=== PATIENT | female | born 1970 | race Two or more races ===

== ENCOUNTER 2023-10-07 11:23 | Emergency (ER) | payer OTHER ==
[~2023-10-07] VITALS: Ht 157.5 cm; Wt 65.8 kg
[2023-10-07 11:44] VITALS: BP 143/80
[2023-10-07 12:31] LABS: BASOPHILS ABSOLUTE AUTO 0.02 K/mm3 (0.00-0.23); BASOPHILS PERCENT AUTO 0 % (0-2); EOSINOPHILS ABSOLUTE AUTO 0.14 K/mm3 (0.00-0.68); EOSINOPHILS PERCENT AUTO 3 % (0-6); Hematocrit 22.4 % (33.0-51.0); Hemoglobin 6.6 g/dL (11.5-16.0); IMMATURE GRAN ABSOLUTE AUTO 0.01 K/mm3 (0.00-0.10); IMMATURE GRAN PERCENT AUTO 0 % (0-1); LYMPHOCYTES ABSOLUTE AUTO 2.52 K/mm3 (0.84-5.20); LYMPHOCYTES PERCENT AUTO 53 % (21-46); MONOCYTES ABSOLUTE AUTO 0.43 K/mm3 (0.16-1.47); MONOCYTES PERCENT AUTO 9 % (4-13); Mean Corpuscular HGB 20.9 pg (26.0-34.0); Mean Corpuscular HGB Conc 29.5 g/dL (31.5-36.5); Mean Corpuscular Volume 71 fL (80-100); Mean Platelet Volume 10.5 fL (9.1-12.4); NEUTROPHILS ABSOLUTE AUTO 1.64 K/mm3 (1.96-9.15); NEUTROPHILS PERCENT AUTO 35 % (41-73); Platelet Count 331 K/mm3 (150-400); RDW Coefficient Variation 15.4 % (11.7-14.2); RDW Standard Deviation 39.2 fL (35.1-46.3); Red Blood Cell Count 3.16 M/mm3 (3.80-5.20); White Blood Cell Count 4.76 K/mm3 (4.00-11.30)
[2023-10-07 13:04] LABS: Albumin, Blood 3.4 g/dL (3.4-5.0); Albumin/Globulin Ratio 0.9 (0.8-1.8); Bilirubin, Total 0.2 mg/dL (0.1-1.0); Bun/Creatinine Ratio 9.6 (12.0-20.0); Calcium, Blood 8.6 mg/dL (8.5-10.1); Creatinine, Blood 0.73 mg/dL (0.40-1.00); Globulin, Blood 3.6 g/dL (2.2-4.0); Potassium, Blood 3.7 mmol/L (3.5-5.5)
[2023-10-07] MEDS ORDERED: MEDR10 PO (15:25)
== END 2023-10-07 15:31 | disposition home or self-care (01) ==
LOC: ER 11:23
PROVIDERS: Physician Assistant
DX: D50.0 Iron deficiency anemia secondary to blood loss (chronic) (principal); D25.0 Submucous leiomyoma of uterus
CPT/HCPCS: 76830; 76856; 80053; 85025; 99284-25

== ENCOUNTER 2023-12-25 06:33 | Day surgery (SDC) | payer OTHER ==
[2023-12-25] VITALS (16 sets, daily range): BP systolic 123–155; BP diastolic 73–87
[~2023-12-25] VITALS: Ht 157.5 cm; Wt 61.6 kg
[~2023-12-25 06:33] MED LIST: Clindamycin 900mg in D5W 50ML 50 ML IV SCH; Cymbalta20 MG PO; FERSU300 PO; LAMO25 PO; Lactated Ringer's 1,000 ML IV SCH; MEDR10 PO; METO25ER PO; MIRALAX1714 PO; TRAZ50 PO
[2023-12-25] MEDS ORDERED: NS IV SCH ×2 (06:45→06:55)
[2023-12-25] MEDS ORDERED: GENTAMICIN SULFATE IV SCH ×2 (06:45→06:55)
[2023-12-25] MEDS ORDERED: FentaNYL Citrate 50 MCG/ML 5 ML Injection ONE (07:10)
[2023-12-25] MEDS ORDERED: Rocuronium Bromide 10 MG/ML 5ML Injection IV ONE ×2 (07:10)
[2023-12-25] MEDS ORDERED: Ondansetron HCl 2 MG / ML 2ML Vial ONE ×2 (07:10→11:11)
[2023-12-25] MEDS ORDERED: Dexamethasone Sod Phos 10 MG/ML 1ML VIAL ONE (07:10)
[2023-12-25] MEDS ORDERED: Ketorolac Tromethamine 30mg Vial ONE (07:10)
[2023-12-25] MEDS ORDERED: propofoL 20 ML IV ONE (07:10)
[2023-12-25] MEDS ORDERED: Glycopyrrolate 0.2 MG/ML 5ML VIAL ONE (07:10)
--- NOTE | 2023-12-25 07:10 | NUR ---
Ambulatory in Day Surgery Patient confirms NPO status and agrees with scheduled surgery. Pre-Op teaching done. Pt verbalizes understanding. History, Chart, Medications and Allergies reviewed before start of procedure.Patient States Post-Procedure ride home has been arranged.
[2023-12-25] MEDS ORDERED: Bupivacaine 0.5% HCl 5 MG/ML 30MLVIAL ONE ×2 (07:18→07:35)
[2023-12-25] MEDS ORDERED: Midazolam HCl 1MG / ML 2ML Vial IV ONE (07:20)
[2023-12-25] MEDS ORDERED: HydrALAZINE HCl 20 MG / ML 1ML Vial ONE ×2 (08:22→10:08)
[2023-12-25] MEDS ORDERED: FentaNYL Citrate 50 MCG/ML 2 ML Injection ONE ×4 (08:23→11:19)
[2023-12-25] MEDS ORDERED: Sugammadex Sodium 200 MG/2ML SDV (100 MG/ML) ONE (09:26)
[2023-12-25] MEDS ORDERED: Simethicone 80 MG Chew PO PRN (11:05)
[2023-12-25] MEDS ORDERED: OxyCODONE HCL 5 MG TAB PO PRN ×2 (11:05→11:10)
[2023-12-25] MEDS ORDERED: Metoclopramide HCl 5MG / ML 2ML Vial IV PRN (11:10)
[2023-12-25] MEDS ORDERED: HYDROmorphone HCl/Pf 1MG SYR IV PRN (11:10)
[2023-12-25] MEDS ORDERED: Lactated Ringer's 1,000 ML IV SCH (11:10)
[2023-12-25] MEDS ORDERED: Ondansetron HCl 2 MG / ML 2ML Vial IV PRN (11:10)
[2023-12-25] MEDS ORDERED: Naloxone HCl 0.4MG / ML 1ML Vial IV PRN (11:10)
[2023-12-25] MEDS ORDERED: DiphenhydrAMINE HCL 25 MG Cap PO PRN (11:15)
[2023-12-25] MEDS ORDERED: Ketorolac Tromethamine 30mg Vial IV SCH (12:00)
[2023-12-25] MEDS ORDERED: Acetaminophen 500 MG Tab PO SCH (12:00)
--- NOTE | 2023-12-25 12:46 | NUR ---
POST-OP PATIENT ARRIVAL AT 1145, AOX4. VITALS STABLE. LAP SCITES X3 WITH WOUND GLUE C/D/I. VENEER SPLICER. REPORTS PAIN OF 5/10 MEDICATED PER EMAR. HEATING PAD IN PLACE. PATIENT IS ABLE TO AMBULATE TO BATHROOM AND VOID 300ML. SCANT DRNG ON PERIPAD. DENIES N/V. CALL LIGHT IS IN REACH. FAMILY AT BEDSIDE.
[2023-12-25] MEDS ORDERED: Ibuprofen 400 MG Tab PO SCH (16:00)
[2023-12-26 05:05] VITALS: BP 154/90
--- NOTE | 2023-12-26 05:40 | NUR ---
SHIFT SUMMARY PT A&OX4, VSS, AMB IND, TOLERATING PO W/ NAUSEA RESOLVED, VOIDING W/ OUT DIFFICULTY, AND PAIN MANAGED PER EMAR W/ PO MEDICATION. PLAN FOR DISCHARGE TODAY. DISCHARGE PACKET COMPLETE. CALL LIGHT WITHIN REACH AND PT ABLE TO MAKE NEEDS KNOWN.
[2023-12-26 05:41] LABS: BASOPHILS ABSOLUTE AUTO 0.02 K/mm3 (0.00-0.23); BASOPHILS PERCENT AUTO 0 % (0-2); EOSINOPHILS ABSOLUTE AUTO 0.01 K/mm3 (0.00-0.68); EOSINOPHILS PERCENT AUTO 0 % (0-6); Hemoglobin 11.3 g/dL (11.5-16.0); IMMATURE GRAN ABSOLUTE AUTO 0.05 K/mm3 (0.00-0.10); IMMATURE GRAN PERCENT AUTO 0 % (0-1); LYMPHOCYTES ABSOLUTE AUTO 3.22 K/mm3 (0.84-5.20); LYMPHOCYTES PERCENT AUTO 24 % (21-46); MONOCYTES ABSOLUTE AUTO 1.02 K/mm3 (0.16-1.47); MONOCYTES PERCENT AUTO 8 % (4-13); Mean Corpuscular HGB 21.7 pg (26.0-34.0); Mean Corpuscular HGB Conc 30.5 g/dL (31.5-36.5); Mean Corpuscular Volume 71 fL (80-100); NEUTROPHILS ABSOLUTE AUTO 9.23 K/mm3 (1.96-9.15); NEUTROPHILS PERCENT AUTO 68 % (41-73); Platelet Count 229 K/mm3 (150-400); RDW Coefficient Variation 20.9 % (11.7-14.2); RDW Standard Deviation 51.4 fL (35.1-46.3); White Blood Cell Count 13.55 K/mm3 (4.00-11.30)
[2023-12-26 07:31] VITALS: BP 175/91
[2023-12-26 07:32] VITALS: BP 179/84
[2023-12-26] MEDS ORDERED: Enoxaparin 40 MG/0.4 ML SYR SC SCH (09:00)
[2023-12-26] MEDS ORDERED: Polyethylene Glycol 3350 17 gm PO SCH (09:00)
[2023-12-26] MEDS ORDERED: Ferrous Sulfate 325 MG Tab PO SCH (09:00)
[2023-12-26] MEDS ORDERED: LamoTRIgine 100 MG Tab PO SCH (09:00)
[2023-12-26] MEDS ORDERED: Metoprolol Succinate 50 MG TABCR PO SCH (09:00)
[2023-12-26] MEDS ORDERED: DULoxetine HCL 30 MG Cap DR PO SCH (09:00)
--- NOTE | 2023-12-26 10:09 | NUR ---
SHIFT SUMMARY POD 1 FOR LAP HYSTER. LAP SITES X 3 WITH WOUND GLUE, C/D/I. PT TOLERATING FOOD. AMBULATING TO THE BATHROOM INDEPENDENTLY WITHOUT COMPLICATIONS. DENIES NAUSEA AND VOMITING. VSS. DISCHARGED HOME WITH AND SON.
[2023-12-26] MEDS ORDERED: TraZODone HCl 100 MG Tab PO SCH (21:00)
== END 2023-12-26 09:11 | disposition home or self-care (01) ==
LOC: ORSCMMR 06:33 → ORD 07:30 → SURS 11:48 → ORSCMMR 12-26 09:11
PROVIDERS: Obstetrics & Gynecology
PROC: 0UBF4ZX Excision of Cul-de-sac, Percutaneous Endoscopic Approach, Diagnostic (ICD-10-PCS; principal; 2023-12-25 07:30)
PROC: 0UT9FZZ Resection of Uterus, Via Natural or Artificial Opening With Percutaneous Endoscopic Assistance (ICD-10-PCS; principal; 2023-12-25 07:30)
PROC: 0UT7FZZ Resection of Bilateral Fallopian Tubes, Via Natural or Artificial Opening With Percutaneous Endoscopic Assistance (ICD-10-PCS; principal; 2023-12-25 07:30)
DX: D25.1 Intramural leiomyoma of uterus (principal); N93.9 Abnormal uterine and vaginal bleeding, unspecified; E61.1 Iron deficiency; N80.329 Endometriosis of the posterior cul-de-sac, unspecified depth; I10 Essential (primary) hypertension; Z79.899 Other long term (current) drug therapy
CPT/HCPCS: 36415; 85025; 86850; 86900; 86901; 88305; 88307; A9270; J0360; J1100; J1580; J1650; J1885; J2250; J2405; J2704; J2765; J3010; J7120

== ENCOUNTER → 2025-07-18 | Outpatient (CLI) | payer OTHER ==
[~2025-07-18] MED LIST changes: +CYMBALTA30 M2 PO; -Clindamycin 900mg in D5W 50ML 50 ML IV SCH; +LAMICTAL200 MG PO; -Lactated Ringer's 1,000 ML IV SCH; +METO100ER PO; +TRAZ150T57 PO
[2025-07-19 11:34] LABS: Bacterial Vaginosis PCR Negative (NEGATIVE); Candida Group, PCR NOT DETECTED (NOT DETECT); Candida glabrata-krusei, PCR NOT DETECTED (NOT DETECT)
== END | disposition home or self-care (01) ==
LOC: LAB SHORT 16:16 → LAB 16:16
PROVIDERS: Family Medicine
DX: N89.8 Other specified noninflammatory disorders of vagina (principal)
CPT/HCPCS: 81515

== ENCOUNTER → 2025-08-04 | Outpatient (CLI) | payer OTHER | LOC: LAB 12:42 → LAB SHORT 12:42 | DX: R30.0 Dysuria (principal) | CPT/HCPCS: 87086 ==